=== PATIENT | male | born 1990 | race African-American/Black ===

== ENCOUNTER 2019-10-11 12:31 | Emergency (ER) | payer MEDICAID ==
[~2019-10-11] VITALS: Ht 193 cm; Wt 86.6 kg
[2019-10-11 14:44] VITALS: BP_SYST 145
--- NOTE | 2019-10-11 14:44 | NUR ---
Patient triaged and placed in waiting room. VSS and patient appears in no acute distress at this time. Accompanied by self , awaiting available bed, and MD notified of need for [id number]
--- NOTE | 2019-10-11 17:05 | NUR ---
Per registration pt LWBS at [id number]
== END 2019-10-11 17:05 | disposition left against medical advice (07) ==
LOC: SED 12:31
DX: M79.89 Other specified soft tissue disorders (principal); Z53.21 Procedure and treatment not carried out due to patient leaving prior to being seen by health care provider
CPT/HCPCS: 82962